=== PATIENT | female | born 1975 | race African-American/Black ===

== ENCOUNTER 2020-07-09 09:24 | Emergency (ER) | payer BC ==
[~2020-07-09] VITALS: Ht 172.7 cm; Wt 65.7 kg
--- NOTE | 2020-07-09 09:28 | PHYS DOC ---
Past History Past Medical History: Anxiety, Fibromyalgia Additional Past Medical Histor: Lupus, gastroparesis, Sjogren's, pulmonary embolism Past Surgical History: Cholecystectomy, Hysterectomy, Oophorectomy Additional Past Surgical Histo: EGD with biopsy Smoking: Non-smoker Alcohol Use: None Drug Use: None General Adult EDM: Chief Complaint: DIZZY/LIGHT HEADED HPI: HPI: Patient is a 44 year old Female who presents via EMS with dizziness, headaches, and lightheadedness. This began on Tuesday PM where she was feeling unwell and general malaise. Tuesday she noticed dizziness and continued unwell. She checked her BP and noted it to be low. She drank fluids and ate salty items which seemed to somewhat help. She still experienced some dizziness with movement and walking. She states that the room was spinning. She mentioned that yesterday she had a headache that started in her sinuses and radiated backwards with nasal congestion and bilateral ear fullness. She did not take anything for her headache due to many drug allergies. She denies any light sensitivity, pain behind the eyes, or numbness or tingling in face or hands or feet. This AM she felt worse with tachycardia and shortness of breath with exertion. She went to her PCP- Dr. Machado who performed [place]-Halpike and noted it to be positive. PCP was concerned that patient needed further evaluation and IVF hydration and therefore sent patient to ED for evaluation and treatment. She denies any blood in emesis or stool or bruising. She denies any COVID or sick contacts. Review of Systems: Review of Systems: Constitutional: Denies fever or chills Eyes: Denies redness or eye pain HENT: Admits nasal congestion, runny nose. Denies sore throat Respiratory: Admits shortness of breath with exertion. Denies cough, wheezing, dyspnea Cardiovascular: Admits chest pain with exertion. Denies palpitations GI: Admits nausea, vomiting. Denies abdominal pain, diarrhea, constipation : Denies dysuria or hematuria Musculoskeletal: Denies back pain or joint pain Integument: Denies rash or skin lesions Neurologic: Admits headaches and dizziness. Denies focal weakness or sensory changes Complete systems were reviewed and found to be within normal limits, except as documented in this note. Family History: Family History: Not pertinent to current presentation. Father had colon cancer. Physical Exam: PE: Constitutional: Well developed, well nourished, no acute distress, non-toxic appearance HENT: Normocephalic, atraumatic, positive Miranda-Halpike maneuver, TMs clear bilaterally Eyes: PERRL, EOMI, conjunctiva normal, no discharge, no nystagmus noted Neck: Normal range of motion, no tenderness, supple Lungs & Thorax: No respiratory distress, equal chest rise and fall Abdomen: Soft, no tenderness Skin: Warm, dry, no erythema, no rash Extremities: No tenderness, ROM intact, no edema, strength 5/5 bilateral UE and LE Neurologic: Alert and oriented X 3, normal motor function, normal sensory function, no focal deficits noted Psychologic: Affect normal, judgment normal EKG: EKG: Performed on 07/09/2020 at 10:22:39. Read at 10:24. HR 64 BPM Intervals - NV 144ms, QRS 90ms, QT 404ms, QTc 416ms Interpretation: Sinus rhythm Radiology/Procedures: Radiology/Procedures: PROCEDURE: CHEST AP ONLY CHEST AP ONLY History: Reason: weakness / Spl. Instructions: / History: Comparison: January 23, 2012 Findings: No consolidation or pleural effusion. Normal heart size. No pneumothorax. Impression: 1. No acute cardiopulmonary process. Electronically signed by: Saman ePrrin DO (07/09/2020 9:59 AM) [id number] PROCEDURE: CT HEAD WO CONTRAST CT HEAD WO CONTRAST History: Reason: dizziness, weakness / Spl. Instructions: / History: Comparison: February 22, 2008 Technique: Noncontrast CT imaging was performed of the head. Exposure: One or more of the following individualized dose reduction techniques were utilized for this examination: 1. Automated exposure control 2. Adjustment of the mA and/or kV according to patient size 3. Use of iterative reconstruction technique. Findings: No intracranial hemorrhage. No mass effect. No hydrocephalus. Extra-axial spaces are unremarkable. Imaged orbits are unremarkable. Imaged paranasal sinuses and mastoid air cells are clear. No acute calvarial fracture. Impression: 1. No acute intracranial abnormality. Electronically signed by: Saman Perrin DO (07/09/2020 10:04 AM) [id number] Course & Med Decision Making: Course & Med Decision Making Patient is a 44yo female who presents with dizziness and lightheadedness. This began Tuesday night and worsened this morning. She denied any sick or COVID contacts. She complained of sinus pressure with headache and ear fullness. Patient neurologically intact. NIHSS 0. HPI and physical exam more likely vertigo with combined orthostatic hypotension.. Labs obtained and posted to chart. INR theraputic. Nonspecific leukopenia noted. CT head and CXR without acute process. Patient was given dose of decadron for sinus inflammation, zofran for nausea, and meclizine for dizziness. Patient was given fluids as well. Patient with interval improvement. Patient stable for discharge with outpatient follow-up with PCP. Discussed findings and plan with patient, who acknowledges understanding and agreement. Dragon Disclaimer: Dragon Disclaimer: This electronic medical record was generated, in whole or in part, using a voice recognition dictation system. Departure Departure: Impression: Primary Impression: Vertigo Additional Impression: Orthostatic hypotension Disposition: 01 DC HOME SELF CARE/HOMELESS Condition: IMPROVED Referrals: HARVINDER DOUGLAS (PCP) Patient Instructions: Orthostatic Hypotension, Vertigo, [id number] Additional Instructions: Please take prescribed medications from your family physician as prescribed. Scripts Prednisone (PREDNISONE) 20 Mg Tablet 2 TAB PO DAILY for Sinus pressure, #8 TAB Start this prescription tomorrow, 07/10/2020 Prov: JULIA BARRIENTOS DO 07/09/20 NIHSS - ED NIH Stroke Scale: NIH Stroke Scale Response (Comments) Value Level of Consciousness: 0 Alert/Responsive 0 LOC Questions: 0 Answers both correctly 0 LOC Commands: 0 Performs both tasks 0 Best Gaze: 0 Normal 0 Visual: 0 No visual loss 0 Facial Palsy: 0 Normal, symmetrical 0 Motor - Left Arm 0 No drift 0 Motor - Right Arm 0 No drift 0 Motor - Left Leg 0 No drift 0 Motor: Right Leg 0 No drift 0 Limb Ataxia: 0 Absent 0 Sensory: 0 No loss 0 Best Language: 0 Normal 0 Dysathria: 0 Normal 0 Extinction and Inattention: 0 Normal 0 Total 0 JULIA BARRIENTOS DO Jul 09, 2020 09:28
[2020-07-09] MEDS ORDERED: MECLIZINE 12.5 MG TABLET. PO ONE (09:30)
[2020-07-09] MEDS ORDERED: IV NORMAL SALINE 1,000ML 1,000 ML IV ONE (09:30)
[2020-07-09] MEDS ORDERED: DEXAMETHASONE SOD PHOS 10 MG/ML VIAL. IV ONE (09:45)
--- NOTE | 2020-07-09 10:02 | RAD ---
CHEST AP ONLY History: Reason: weakness / Spl. Instructions: / History: Comparison: January 23, 2012 Findings: No consolidation or pleural effusion. Normal heart size. No pneumothorax. Impression: 1. No acute cardiopulmonary process. Electronically signed by: Saman Perrin DO (07/09/2020 9:59 AM) [id number]
[2020-07-09 10:03] LABS: BASO % 2 % (0-3); EOS % 2 % (0-3); HEMATOCRIT 41.7 % (36.0-47.0); HEMOGLOBIN 13.4 g/dL (12.0-15.5); LYMPH % 49 % (24-48); MEAN CORPUSCULAR HEMOGLOBIN 31 pg (25-35); MEAN CORPUSCULAR HGB CONC 32 g/dL (31-37); MEAN CORPUSCULAR VOLUME 96 fL (79-100); MONO # 0.3 x10^3/uL (0.0-1.1); MONO % 13 % (0-9); NEUT # 0.7 x10^3uL (1.8-7.7); NEUT % 35 % (31-73); PLATELET COUNT 192 x10^3/uL (140-400); RED BLOOD COUNT 4.36 x10^6/uL (3.50-5.40); RED CELL DISTRIBUTION WIDTH 14.4 % (11.5-14.5)
--- NOTE | 2020-07-09 10:07 | RAD ---
CT HEAD WO CONTRAST History: Reason: dizziness, weakness / Spl. Instructions: / History: Comparison: February 22, 2008 Technique: Noncontrast CT imaging was performed of the head. Exposure: One or more of the following individualized dose reduction techniques were utilized for this examination: 1. Automated exposure control 2. Adjustment of the mA and/or kV according to patient size 3. Use of iterative reconstruction technique. Findings: No intracranial hemorrhage. No mass effect. No hydrocephalus. Extra-axial spaces are unremarkable. Imaged orbits are unremarkable. Imaged paranasal sinuses and mastoid air cells are clear. No acute calvarial fracture. Impression: 1. No acute intracranial abnormality. Electronically signed by: Saman Perrin DO (07/09/2020 10:04 AM) [id number]
[2020-07-09 10:08] LABS: ANION GAP 8 (6-14); BLOOD UREA NITROGEN 9 mg/dL (7-20); BUN/CREATININE RATIO 7 (6-20); CALCIUM 9.5 mg/dL (8.5-10.1); CARBON DIOXIDE 28 mmol/L (21-32); CHLORIDE 104 mmol/L (98-107); CREATININE 1.3 mg/dL (0.6-1.0); GFR 53.4; GLUCOSE 81 mg/dL (70-99); POTASSIUM 4.2 mmol/L (3.5-5.1); SODIUM 140 mmol/L (136-145)
[2020-07-09] MEDS ORDERED: ONDANSETRON PF 4 MG/2 ML VIAL. IVP ONE (10:15)
[2020-07-09 10:25] LABS: ALBUMIN 3.8 g/dL (3.4-5.0); ALBUMIN/GLOBULIN RATIO 1.1 (1.0-1.7); ALK PHOS 61 U/L (46-116); ALT (SGPT) 22 U/L (14-59); AST (SGOT) 20 U/L (15-37); MAGNESIUM 2.3 mg/dL (1.8-2.4); TOTAL BILIRUBIN 0.6 mg/dL (0.2-1.0); TOTAL PROTEIN 7.4 g/dL (6.4-8.2)
[2020-07-09 11:00] VITALS: BP 116/67
[2020-07-09 11:03] LABS: BACTERIA,URINE 0 /HPF (0-FEW); BILIRUBIN,URINE NEG (NEG); CLARITY,URINE CLEAR; COLOR,URINE YELLOW; GLUCOSE,URINE NEG (NEG); HYALINE CASTS, URINE OCC /HPF; NITRITE,URINE NEG (NEG); RBC,URINE OCC /HPF (0-2); SQUAMOUS EPITHELIAL CELL,UR OCC /LPF; UROBILINOGEN,URINE 0.2 mg/dL (0.2 mg/dL); WBC,URINE OCC /HPF (0-4)
[2020-07-09] MEDS ORDERED: PRED20TA PO (11:20)
== END 2020-07-09 11:29 | disposition home or self-care (01) ==
LOC: ER 09:24
DX: I95.1 Orthostatic hypotension (principal); R42 Dizziness and giddiness; R11.2 Nausea with vomiting, unspecified; F41.9 Anxiety disorder, unspecified; M79.7 Fibromyalgia; Z86.711 Personal history of pulmonary embolism
CPT/HCPCS: 36415; 70450; 71045; 80053; 81001; 82553; 83735; 84484; 85025; 85610; 85730; 87086; 96361; 96374; 96375; 99285; J1100; J2405; J7030; J8597

== ENCOUNTER 2020-11-18 20:59 | Emergency (ER) | payer BC ==
[~2020-11-18] VITALS: Ht 172.7 cm; Wt 65.7 kg
[~2020-11-18 20:59] MED LIST: PRED20TA PO
[2020-11-18] MEDS ORDERED: MECLIZINE 12.5 MG TABLET. PO ONE (21:15)
--- NOTE | 2020-11-18 21:15 | PHYS DOC ---
Past History Past Medical History: Anxiety, Fibromyalgia Additional Past Medical Histor: Lupus, gastroparesis, Sjogren's, pulmonary embolism Past Surgical History: Cholecystectomy, Hysterectomy, Oophorectomy Additional Past Surgical Histo: EGD with biopsy Smoking: Non-smoker Alcohol Use: None Drug Use: None Adult General Chief Complaint Chief Complaint: DIZZY/LIGHT HEADED HPI HPI Patient is a 44-year-old female with a past medical history significant for anxiety, depression, fibromyalgia and vertigo who presents with a chief complaint of lightheadedness. States that it started earlier in the day has been intermittent over until the last hour. States she has had this several times in the past before and it usually goes away. Denies any recent traumas, travels, illnesses, fevers, chest pain, shortness of breath, abdominal pain, nausea, vomiting, diarrhea, numbness/weakness/tingling or trouble ambulating. Denies any slurred speech, confusion or facial droop. States that she just feels dizzy/lightheaded, like she spinning. Review of Systems Review of Systems Review of systems otherwise unremarkable except noted in HPI Current Medications Current Medications Current Medications Medications (Trade) Dose Ordered Sig/Joselito Start Time Stop Time Status Last Admin Dose Admin Lorazepam (Ativan Inj) 1 mg 1X ONCE 11/18/20 21:15 11/18/20 21:16 Meclizine HCl (Antivert) 12.5 mg 1X ONCE 11/18/20 21:15 11/18/20 21:16 Allergies Allergies Allergies Coded Allergies Type Severity Reaction Last Updated Verified Nitrofuran Analogues Allergy Unknown 07/09/20 Yes acetaminophen Allergy Unknown 07/09/20 Yes aspirin Allergy Unknown 07/09/20 Yes cyclobenzaprine Allergy Unknown 07/09/20 Yes desvenlafaxine Allergy Unknown 07/09/20 Yes escitalopram Allergy Unknown 07/09/20 Yes hydrocodone Allergy Unknown 07/09/20 Yes lamotrigine Allergy Unknown 07/09/20 Yes polyethylene glycol 3350 Allergy Unknown 07/09/20 Yes pregabalin Allergy Unknown 07/09/20 Yes quetiapine Allergy Unknown 07/09/20 Yes ramelteon Allergy Unknown 07/09/20 Yes sertraline Allergy Unknown 07/09/20 Yes shellfish derived Allergy Unknown 07/09/20 Yes sumatriptan Allergy Unknown 07/09/20 Yes vilazodone Allergy Unknown 07/09/20 Yes Physical Exam Physical Exam Constitutional: Well developed, well nourished, no acute distress, non-toxic appearance. [] HENT: Normocephalic, atraumatic, bilateral external ears normal, oropharynx moist, no oral exudates, nose normal. [] Eyes: PERRLA, EOMI, conjunctiva normal, no discharge. [] Neck: Normal range of motion, no tenderness, supple, no stridor. [] Cardiovascular:Heart rate regular rhythm, no murmur [] Lungs & Thorax: Bilateral breath sounds clear to auscultation [] Abdomen: Bowel sounds normal, soft, no tenderness, no masses, no pulsatile masses. [] Skin: Warm, dry, no erythema, no rash. [] Extremities: No tenderness, no cyanosis, no clubbing, ROM intact, no edema. [] Neurologic: Alert and oriented X 3, grossly normal motor function, grossly no rmal sensory function, cranial nerves grossly normal, no focal deficits noted, NIH of 0, able to ambulate without issue, no nystagmus. [] Psychologic: Affect normal, judgement normal, mood normal. [] EKG EKG Rate of 65, QRS of 94, QTc of 406, normal EKG [] Radiology/Procedures Radiology/Procedures []FINDINGS: No focal parenchymal lesion or hemorrhage is identified. There is no midline shift or sulcal effacement. No acute vascular territory infarction is identified. Perry-white distinction is preserved. The ventricular system is within normal limits without compression hydrocephalus. The basal cisterns are well maintained. The visualized portions of the paranasal sinuses and mastoid air cells are well- pneumatized. No acute fractures. IMPRESSION: No acute intracranial abnormality. Exposure: One or more of the following in the visualized dose reduction techniques were utilized for this examination: 1. Automated exposure control 2. Adjustment of the MA and/or KV according to patient size Use of iterative of reconstructive technique Electronically signed by: Beryl Wagner MD (11/18/2020 10:05 PM) [facility] Heart Score C/O Chest Pain: No Risk Factors: Risk Factors: DM, Current or recent (<one month) smoker, HTN, HLP, family history of CAD, obesity. Risk Scores: Risk Factors: DM, Current or recent (<one month) smoker, HTN, HLP, family history of CAD, obesity. Course & Med Decision Making Course & Med Decision Making Patient is a 44-year-old female who presents with intermittent dizziness/lightheadedness over the course of the day Vital signs not concerning. Physical exam noted above. Patient placed on the monitor. Given meclizine and Ativan. On reassessment patient stated her symptoms had completely resolved, she was grateful and stated she felt safe to discharge home. CT of the head obtained secondary to patient's current warfarin use and not concerning. EKG and troponin not concerning. Laboratory analysis notable for mild leukopenia. Discussed all findings with patient and advised a short course of prophylactic meclizine until she can see her primary care physician. Advised: PCP in the morning to set up follow-up. Gave strict return precautions to the ED. Patient grateful, verbalized understanding and agreed with plan of discharge. [] Dragon Disclaimer Dragon Disclaimer This electronic medical record was generated, in whole or in part, using a voice recognition dictation system. Departure Departure: Impression: Primary Impression: Lightheadedness Additional Impression: Vertigo Disposition: 01 DC HOME SELF CARE/HOMELESS Condition: GOOD Referrals: GHAZALA RHODES (PCP) Patient Instructions: Vertigo Additional Instructions: Please read all the attached information. Please begin a meclizine low-dose regimen until you see your primary care physician. Please call your primary care physician first thing in the morning to discuss your ED visit and set up a follow-up as soon as possible to discuss need for further evaluation and treatment. Please come back to the ED with new or concerning symptoms as discussed. Scripts Meclizine Hcl (MECLIZINE HCL) 25 Mg Tablet 1 TAB PO TID for vertigo for 10 Days, #30 TAB Prov: DIMPLE MAGANA MD 11/18/20 Problem Qualifiers DIMPLE MAGANA MD Nov 18, 2020 21:14
[2020-11-18 21:51] LABS: BASO % 1 % (0-3); EOS # 0.1 x10^3/uL (0.0-0.7); EOS % 4 % (0-3); HEMATOCRIT 38.6 % (36.0-47.0); HEMOGLOBIN 12.7 g/dL (12.0-15.5); LYMPH # 1.7 x10^3/uL (1.0-4.8); LYMPH % 60 % (24-48); MEAN CORPUSCULAR HEMOGLOBIN 31 pg (25-35); MEAN CORPUSCULAR HGB CONC 33 g/dL (31-37); MEAN CORPUSCULAR VOLUME 95 fL (79-100); MONO # 0.4 x10^3/uL (0.0-1.1); MONO % 14 % (0-9); NEUT # 0.6 x10^3uL (1.8-7.7); NEUT % 21 % (31-73); PLATELET COUNT 176 x10^3/uL (140-400); RED BLOOD COUNT 4.05 x10^6/uL (3.50-5.40); RED CELL DISTRIBUTION WIDTH 13.8 % (11.5-14.5); WHITE BLOOD COUNT 2.9 x10^3/uL (4.0-11.0)
[2020-11-18 21:58] LABS: CALCIUM 9.1 mg/dL (8.5-10.1); CREATININE 1.2 mg/dL (0.6-1.0); GFR 58.5; POTASSIUM 3.6 mmol/L (3.5-5.1)
--- NOTE | 2020-11-18 22:08 | RAD ---
Exam: CT head INDICATION: Hit head on warfarin TECHNIQUE: Sequential axial images through the head were obtained without the administration of IV co ntrast. Comparisons: 07/09/2020 FINDINGS: No focal parenchymal lesion or hemorrhage is identified. There is no midline shift or sulcal effaceme nt. No acute vascular territory infarction is identified. Perry-white distinction is preserved. The ventricular system is within normal limits without compression hydrocephalus. The basal cisterns are well maintained. The visualized portions of the paranasal sinuses and mastoid air cells are well-pneumatized. No acute fractures. IMPRESSION: No acute intracranial abnormality. Exposure: One or more of the following in the visualized dose reduction techniques were utilized for this examination: 1. Automated exposure control 2. Adjustment of the MA and/or KV according to patient size Use of iterative of reconstructive technique Electronically signed by: Beryl Wagner MD (11/18/2020 10:05 PM) [facility]ITALSIOMARA
[2020-11-18 22:12] LABS: % EOS 5 % (0-5); % LYMPHS 64 % (24-48); % MONOS 8 % (0-10); % SEGS 23 % (35-66)
[2020-11-18 22:13] LABS: PLT ESTIMATE ADEQUATE (ADEQUATE)
[2020-11-18 22:25] VITALS: BP 115/68
[2020-11-18] MEDS ORDERED: MECL-75 PO (22:38)
--- NOTE | 2020-11-18 23:11 | EKG ---
[address] [address] Test Date: 2020-11-18 Test Time: 21:19:03 Pat Name: MERVAT FELDMAN Department: Room: Gender: F Floor Person: : 1975 Requested By: DIMPLE MAGANA Order Number: [id number] Reading MD: Measurements Intervals [place] Rate: 65 P: 65 FL: 150 QRS: 52 QRSD: 94 T: 42 QT: 390 QTc: 406 Interpretive Statements SINUS RHYTHM OTHERWISE NORMAL ECG RI6.02 No previous ECG available for comparison
== END 2020-11-18 22:50 | disposition home or self-care (01) ==
LOC: ER 20:59
DX: R42 Dizziness and giddiness (principal); F41.9 Anxiety disorder, unspecified; F31.9 Bipolar disorder, unspecified; M79.7 Fibromyalgia; Z86.711 Personal history of pulmonary embolism; Z88.5 Allergy status to narcotic agent; Z88.8 Allergy status to other drugs, medicaments and biological substances; Z88.6 Allergy status to analgesic agent; Z91.013 Allergy to seafood
CPT/HCPCS: 36415; 70450; 80048; 84484; 85007; 85025; 93005; 96374; 99285; J2060